=== PATIENT | female | born 1955 | race Caucasian/White ===

== ENCOUNTER 2019-06-29 08:00 | Outpatient (CLI) | payer MEDICARE ==
[2016-03-05 09:23] VITALS: BMI 30.6
[~2019-06-29 08:00] MED LIST: ACCUPRIL20 MG PO; CARAFATE1 G PO; CYCLOBENZAPRINE10 MG PO; GLUCOPHAGE1000 MG PO; HYDROCHLOROTHIA25 MG PO; HYDROCODONE-APA1 TAB PO; LIPITOR20 MG PO; MOBIC7.5 MG PO; NEURONTIN 300300 MG PO; OMEPRAZOLE20 M1 PO; REGLAN10 MG PO
== END 2019-06-29 12:00 | disposition home or self-care (01) ==
LOC: D.MAMMO 08:00
PROVIDERS: ATTEND Family Medicine
DX: Z12.31 Encounter for screening mammogram for malignant neoplasm of breast (principal)